=== PATIENT | female | born 1955 | race Caucasian/White ===

== ENCOUNTER 2017-03-11 18:28 | Emergency (ER) | payer OTHER ==
[2017-03-11 18:43] VITALS: BP 119/74; PULSE 87; RESP 16; TEMP 98.1; O2SAT 94
[2017-03-11] MEDS ORDERED: SKIN ADHESIVE (DERMABOND) 1 EACH TP ONE (18:54)
--- NOTE | 2017-03-11 19:01 | EDPHY ---
H & P Time Seen by Provider: 03/11/17 18:50 HPI/ROS: CHIEF COMPLAINT: Finger laceration HISTORY OF PRESENT ILLNESS: Patient is a 61-year-old female who presents to the emergency department with he lacerated left middle finger. She was cutting salad and cut herself with a knife. She has mild discomfort. There is no radiation of the pain. No other complaints. It is still bleeding. REVIEW OF SYSTEMS: Negative Past Medical/Surgical History: Noncontributory Smoking Status: Never smoked Physical Exam: Vitals noted General Appearance: Alert and no distress. Head: Pupils equal. Normal. Respiratory: No respiratory distress. Cardiac: regular rate and rhythm. Extremities: Patient has a 1 cm laceration on the tip of her left middle finger. This is not involve the nail or nail bed. There is no visible foreign body. Skin: No rashes or lesions. Neuro: Alert. Normal mood and affect. Constitutional: Initial Vital Signs Temperature (C) 36.7 C 03/11/17 18:40 Heart Rate 87 03/11/17 18:40 Respiratory Rate 16 03/11/17 18:40 Blood Pressure 119/74 03/11/17 18:40 O2 Sat (%) 94 03/11/17 18:40 O2 Delivery Mode Room Air Allergies/Adverse Reactions: No Known Allergies Allergy (Verified 03/11/17 18:43) Home Medications: Medication Instructions Recorded NO HOME MEDS 07/18/13 Medical Decision Making Procedures: Procedure: Laceration repair. Verbal consent was obtained from the patient. The 1 cm laceration on the left middle finger. The wound was irrigated, draped and explored to its base with a gloved finger. There were no deep structures involved. No tendon injury was identified. Nail bed was not involved. The wound was repaired with [glue ]. The wound repair was simple. The procedure was performed by myself. ED Course/Re-evaluation: My differential includes but is not limited to laceration, avulsion, nail bed injury, foreign body Departure - Departure Disposition: Home, Routine, Self-Care Clinical Impression: Finger laceration Qualifiers: Encounter type: initial encounter Qualified Code(s): S61.219A - Laceration without foreign body of unspecified finger without damage to nail, initial encounter Condition: Good Instructions: Finger Laceration (ED), Skin Adhesive Care (ED) Additional Instructions: Keep the finger clean and dry. Attempt to make the glue last as long as possible. You can do this by not touching it, rubbing it, or putting product on it. Referrals: James Francisco, DO [Primary Care Provider] - As per Instructions
== END 2017-03-11 19:18 | disposition home or self-care (01) ==
LOC: CED 18:28
PROC: 0HQGXZZ Repair Left Hand Skin, External Approach (ICD-10-PCS; principal; 2017-03-11)
DX: S61.213A Laceration without foreign body of left middle finger without damage to nail, initial encounter (principal); W26.0XXA Contact with knife, initial encounter; Y99.8 Other external cause status; Y93.G1 Activity, food preparation and clean up